=== PATIENT | female | born 1965 | race Caucasian/White ===

== ENCOUNTER 2017-12-25 09:59 | Day surgery (SDC) | payer OTHER ==
[2017-12-24 16:39] VITALS: BMI 39.4
[2017-12-25] MEDS ORDERED: Fentanyl 100 MCG/2 ML VIAL ONE ×2 (12:06→13:54)
[2017-12-25] MEDS ORDERED: Lidocaine 1% w/Epinephrine 1:200K 30 ML VIAL ONE (12:07)
[2017-12-25] MEDS ORDERED: Promethazine HCl 25 MG/ML VIAL ONE (14:09)
[2017-12-25] MEDS ORDERED: Ondansetron HCl/PF 4 MG/2 ML Vial ONE (14:19)
[2017-12-25] MEDS ORDERED: Lidocaine 1% PF 5 ML VIAL ONE (14:19)
[2017-12-25] MEDS ORDERED: PROPOFOL 200 MG/20 ML VIAL ONE (14:19)
[2017-12-25] MEDS ORDERED: Dexamethasone 20 MG/5 ML VIAL ONE (14:19)
[2017-12-25] MEDS ORDERED: Glycopyrrolate 0.2 MG/ML 5 ML SYRINGE ONE (14:19)
--- NOTE | 2017-12-26 12:29 | OP ---
DATE OF PROCEDURE: 12/25/2017 SURGEON: Dr. Subhash Stevens PREOPERATIVE DIAGNOSES: Left submandibular mass. 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 PROCEDURE PERFORMED: Excision of left submandibular gland using facial nerve monitoring. PROCEDURE IN DETAIL: After consent was obtained, the patient was identified, brought to the operatin g room and placed on the operating table in supine position. General endotracheal anesthesia was obt ained and the facial nerve monitor was placed and documented to be well functioning. We then made an incision in delineated area 2 fingerbreadths below the angle of the mandible and found a natural ski n crease in that region and delineated it with a marking pen. The area was infiltrated with 1% lidoc evie with 1:100,000 epinephrine. We then made an incision with a 15 blade through skin and subcutane ous tissues and ultimately the platysma. We then dissected down to the capsule of gland and dissecte d along that plane with care not to injure the marginal mandibular branch. Ultimately, the facial ve in and artery were identified and suture ligated. We dissected down to the posterior belly of the ga stric muscle and retracted the mylohyoid anteriorly. This allowed for dissection of the gland into t he floor of mouth area. We identified the submandibular duct which were suture ligated and the subma ndibular ganglion. Care was made to come across at the submandibular ganglion with care not to injur e the lingual nerve. Hemostasis was obtained and the gland was removed intact and sent for histologi c evaluation. It was found to be consistent with a benign mixed tumor. There was no bleeding and no obvious edema, salivary leak and the decision was made to close the wound. Tissues were reapproxima rich including the platysma and subcutaneous tissues with absorbable Monocryl suture. Skin was closed with 6-0 Prolene and a sterile dressing was applied. The patient was awakened, extubated, and taken to recovery room where she remained in stable condition prior to discharge home.
--- NOTE | 2018-02-23 21:49 | EKG ---
Test Reason : PREOP Blood Pressure : / mmHG Vent. Rate : 078 BPM Atrial Rate : 078 BPM P-R Int : 150 ms QRS Dur : 080 ms QT Int : 402 ms P-R-T Axes : 000 013 009 degrees QTc Int : 458 ms Normal sinus rhythm Normal ECG No previous ECGs available Confirmed by BRANDON REDDY M.D. ([id number]) on 02/23/2018 9:49:00 PM Referred By: PAULO Confirmed By:BRANDON REDDY M.D.
== END 2017-12-25 16:02 | disposition home or self-care (01) ==
LOC: SDC 09:59
PROVIDERS: ATTEND Specialist
PROC: 0CTH0ZZ Resection of Left Submaxillary Gland, Open Approach (ICD-10-PCS; principal; 2017-12-25)
DX: D11.7 Benign neoplasm of other major salivary glands (principal); I10 Essential (primary) hypertension; M17.12 Unilateral primary osteoarthritis, left knee; Z79.899 Other long term (current) drug therapy; Z98.51 Tubal ligation status; Z90.721 Acquired absence of ovaries, unilateral; Z90.79 Acquired absence of other genital organ(s); Z98.890 Other specified postprocedural states; Z98.891 History of uterine scar from previous surgery
CPT/HCPCS: 88307; 88331; 93005; 93010; 96374; J1100; J2001; J2405; J2550; J2704; J3010

== ENCOUNTER 2017-12-29 09:58 | Outpatient (CLI) | payer OTHER ==
--- NOTE | 2017-12-29 12:05 | MMO ---
BILATERAL SCREENING MAMMOGRAM: HISTORY: A 52-year-old female for screening mammography. COMPARISON: 09/10/16, 08/25/15, 06/15/14. FINDINGS: Bilateral MLO and CC views of the breasts show scattered fibroglandular breast tissue. There are filipe ign-appearing calcifications in both breasts. There is no evidence of suspicious mass, suspicious cl uster of microcalcifications, or area of architectural distortion. Interpretation of this mammogram was performed with the assistance of computer-aided detection. IMPRESSION: BI-RADS category 2 - benign findings. Annual screening mammography is recommended. POS: SUJEY
[2017-12-29 16:21] LABS: Bilirubin Negative (Negative); Blood, Urine Negative (Negative); Clarity Slightly Cloudy (Clear); Glucose, Urine (Dipstick) Negative (Negative); Leukocyte Trace (Negative); Nitrite Negative (Negative); Protein, Urine (Dipstick) Negative (Neg-Trace); Specific Gravity, Urine 1.015 (1.005-1.030); Urobilinogen 0.2 mg/dL (0.2-1.0); pH, Urine 6.5 (5.0-9.0)
[2017-12-29 17:40] LABS: Bacteria/HPF 3+ HPF (None Seen); RBC/HPF 0-3 HPF (0-3); Squamous Epithelial 0-3 HPF (0-3)
== END 2017-12-29 09:59 | disposition home or self-care (01) ==
LOC: SCSMAMMO 09:58
PROVIDERS: ATTEND Family Medicine
DX: Z12.31 Encounter for screening mammogram for malignant neoplasm of breast (principal); R82.90 Unspecified abnormal findings in urine
CPT/HCPCS: 77067; 81001; 87077; 87086; 87186

== ENCOUNTER 2018-04-08 07:58 | Outpatient (CLI) | payer OTHER ==
--- NOTE | 2018-04-08 10:41 | MRI ---
MRI LEFT KNEE WITHOUT CONTRAST: INDICATIONS: Anterior left knee pain. COMPARISON: Prior MRI dated 03/09/2014. FINDINGS: There is moderate to severe osteoarthrosis of the left knee that has mildly progressed from the prior exam. There are complex degenerative tears involving the medial meniscus with medial extrusion. Th e extent of the degenerative fraying involving the medial meniscal body is similar. The medial menis musa body is truncated and macerated in appearance. The lateral meniscus appears intact. The ACL dem onstrates mucoid degeneration, which is similar to prior. The PCL is intact. The MCL and LCLC are i ntact. The extensor mechanism is intact. A small Gibson's cyst is present. IMPRESSION: Mild progression of the moderate to severe osteoarthrosis involving the left knee, severely affecting the medial femorotibial joint compartment, where there is a complex degenerative tear of the medial meniscus. POS: SCARLET
== END 2018-04-08 07:59 | disposition home or self-care (01) ==
LOC: MRI 07:58
PROVIDERS: ATTEND Family Medicine
DX: S83.242A Other tear of medial meniscus, current injury, left knee, initial encounter (principal); M17.12 Unilateral primary osteoarthritis, left knee; M25.562 Pain in left knee; M25.362 Other instability, left knee

== ENCOUNTER 2019-04-21 08:50 | Outpatient (CLI) | payer OTHER ==
--- NOTE | 2019-04-21 09:28 | MMO ---
Bilateral MAMMO Bilat Screen [facility]. CLINICAL HISTORY: Patient is 54 years old and is seen for screening. The patient has the following family history of breast cancer: cousin female, at age 55, malignant (generic). The patient has no personal history of cancer. VIEWS: The views performed were: bilateral craniocaudal with tomosynthesis and bilateral mediolateral oblique with tomosynthesis. FILMS COMPARED: The present examination has been compared to prior imaging studies performed at [facility] on 06/15/2014, 08/25/2015, 09/10/2016 and 12/29/2017. MAMMOGRAM FINDINGS: There are scattered fibroglandular densities. There are benign appearing calcifications seen in both breasts. There are no suspicious masses, suspicious calcifications, or new areas of architectural distortion. IMPRESSION: THERE IS NO MAMMOGRAPHIC EVIDENCE OF MALIGNANCY. A ROUTINE FOLLOW-UP MAMMOGRAM IN 1 YEAR IS RECOMMENDED. THE RESULTS OF THIS EXAM WERE SENT TO THE PATIENT. ACR BI-RADS Category 2 - Benign finding MAMMOGRAPHY NOTE: 1. A negative mammogram report should not delay a biopsy if a dominant of clinically suspicious mass is present. 2. Approximately 10% to 15% of breast cancers are not detected by mammography. 3. Adenosis and dense breasts may obscure an underlying neoplasm.
== END 2019-04-21 08:51 | disposition home or self-care (01) ==
LOC: BICMAMMO 08:50
PROVIDERS: ATTEND Family Medicine
DX: Z12.31 Encounter for screening mammogram for malignant neoplasm of breast (principal); Z80.3 Family history of malignant neoplasm of breast
CPT/HCPCS: 77063; 77067

== ENCOUNTER 2021-03-26 15:28 | Outpatient (CLI) | payer OTHER | END 2021-03-26 15:29 | disposition home or self-care (01) | LOC: BICMAMMO 15:28 | PROVIDERS: ATTEND Family Medicine | DX: Z12.31 Encounter for screening mammogram for malignant neoplasm of breast (principal); Z80.3 Family history of malignant neoplasm of breast | CPT/HCPCS: 77063; 77067 ==

== ENCOUNTER 2021-10-10 15:14 | Outpatient (CLI) | payer OTHER | END 2021-10-10 15:15 | disposition home or self-care (01) | LOC: DTY/OP 15:14 | PROVIDERS: ATTEND Surgery | DX: E66.01 Morbid (severe) obesity due to excess calories (principal) | CPT/HCPCS: 97802 ==

== ENCOUNTER 2023-03-21 15:06 | Outpatient (CLI) | payer OTHER | END 2023-03-21 15:07 | disposition home or self-care (01) | LOC: BICMAMMO 15:06 | PROVIDERS: ATTEND Family Medicine | DX: Z12.31 Encounter for screening mammogram for malignant neoplasm of breast (principal); N63.12 Unspecified lump in the right breast, upper inner quadrant; Z80.3 Family history of malignant neoplasm of breast | CPT/HCPCS: 77063; 77067 ==

== ENCOUNTER 2023-03-28 07:35 | Outpatient (CLI) | payer OTHER | END 2023-03-28 07:36 | disposition home or self-care (01) | LOC: BICULT 07:35 | PROVIDERS: ATTEND Family Medicine | DX: N63.12 Unspecified lump in the right breast, upper inner quadrant (principal) ==

== ENCOUNTER 2023-09-29 13:50 | Outpatient (CLI) | payer OTHER | END 2023-09-29 13:51 | disposition home or self-care (01) | LOC: BICMAMMO 13:50 | PROVIDERS: ATTEND Family Medicine | DX: N63.12 Unspecified lump in the right breast, upper inner quadrant (principal) | CPT/HCPCS: G0279 ==

== ENCOUNTER 2024-03-30 14:24 | Outpatient (CLI) | payer OTHER | END 2024-03-30 14:25 | disposition home or self-care (01) | LOC: BICMAMMO 14:24 | PROVIDERS: ATTEND Family Medicine | DX: R92.8 Other abnormal and inconclusive findings on diagnostic imaging of breast (principal); N60.01 Solitary cyst of right breast | CPT/HCPCS: 77066; G0279 ==